=== PATIENT | female | born 1940 | race Two or more races ===

== ENCOUNTER 2018-12-21 12:15 | Emergency (ER) | payer OTHER ==
[~2018-12-21] VITALS: Ht 167.6 cm; Wt 77.1 kg
[2018-12-21] MEDS ORDERED: COZAAR50 MG (12:33)
== END 2018-12-21 20:59 | disposition home or self-care (01) ==
LOC: ER 12:15
DX: K29.70 Gastritis, unspecified, without bleeding (principal); R42 Dizziness and giddiness

== ENCOUNTER 2021-06-12 14:56 | Emergency (ER) | payer OTHER ==
[~2021-06-12] VITALS: Ht 165.1 cm; Wt 72.6 kg
[~2021-06-12 14:56] MED LIST: COZAAR50 MG
[2021-06-12] MEDS ORDERED: SYNTHROID75 MCG PO (15:03)
[2021-06-12] MEDS ORDERED: IBU600 MG PO (15:03)
[2021-06-12] MEDS ORDERED: ADALAT CC30 MG PO (15:04)
[2021-06-12] MEDS ORDERED: LIPITOR40 M1 PO (15:04)
== END 2021-06-12 16:28 | disposition home or self-care (01) ==
LOC: ER 14:56
DX: M54.2 Cervicalgia (principal); I10 Essential (primary) hypertension

== ENCOUNTER → 2022-01-27 | Emergency (ER) | payer OTHER ==
[~2022-01-27] VITALS: Ht 167.6 cm; Wt 73.9 kg
[~2022-01-27] MED LIST changes: +ADALAT CC30 MG PO; +ANTIVERT25 M2 PO; +CYCLOBENZAPRINE10 MG PO; +FOSAMAX70 MG PO; +HYDROCHLOROTHIA25 MG PO; +IBU600 MG PO; +LIPITOR40 M1 PO; +NORFLEX100MG PO; +SYNTHROID75 MCG PO
== END | disposition left against medical advice (07) ==
LOC: ER 11:19
DX: M54.2 Cervicalgia (principal); M62.838 Other muscle spasm; E03.9 Hypothyroidism, unspecified; I10 Essential (primary) hypertension; Z88.0 Allergy status to penicillin; Z88.6 Allergy status to analgesic agent

== ENCOUNTER 2022-01-28 17:53 | Emergency (ER) | payer OTHER ==
[~2022-01-28] VITALS: Ht 167.6 cm; Wt 73.9 kg
[2022-01-28] MEDS ORDERED: CYCLOBENZAPRINE10 MG PO (19:52)
== END 2022-01-28 20:04 | disposition home or self-care (01) ==
LOC: ER 17:53
DX: M62.838 Other muscle spasm (principal); R51.9 Headache, unspecified; I10 Essential (primary) hypertension; E03.9 Hypothyroidism, unspecified; Z88.6 Allergy status to analgesic agent; Z88.0 Allergy status to penicillin

== ENCOUNTER 2023-03-07 17:10 | Emergency (ER) | payer OTHER ==
[~2023-03-07] VITALS: Ht 167.6 cm; Wt 68.5 kg
[2023-03-07 20:01] LABS: HEMATOCRIT 33.5 % (36.0-45.00); HEMOGLOBIN 10.9 g/dL (12.0-15.00); MEAN CELL VOLUME 88.2 fL (80.00-100.00); MEAN CORPUSCULAR HEMOGLOBIN 28.8 pg (27.00-32.0); MEAN CORPUSCULAR HGB CONC 32.7 g/dl (32.0-36.0); PLATELET COUNT 141 K/uL (150-450); RED CELL DISTRIBUTION WIDTH 14.4 % (11.5-14.5)
[2023-03-07 20:36] LABS: ALBUMIN 3.7 gm/dL (3.4-5.0); BILIRUBIN TOTAL 0.4 mg/dL (0.3-1.2); CALCIUM 9.1 mg/dL (8.5-10.1); CREATININE SERUM 0.68 mg/dL (0.55-1.02); GFR 82.84; GLOBULINA 3.5 G/DL (2.4-3.5); TOTAL PROTEIN 7.2 gm/dL (6.4-8.2)
[2023-03-07 20:40] LABS: POTASSIUM 4.13 mEq/L (3.5-5.1)
== END 2023-03-08 01:33 | disposition home or self-care (01) ==
LOC: ER 17:10
PROVIDERS: Emergency Medicine
DX: R07.89 Other chest pain (principal); R00.2 Palpitations; Z88.6 Allergy status to analgesic agent; Z88.0 Allergy status to penicillin

== ENCOUNTER 2023-05-16 15:51 | Emergency (ER) | payer OTHER ==
[~2023-05-16] VITALS: Ht 167.6 cm; Wt 68.0 kg
[2023-05-16] MEDS ORDERED: ANTIVERT25 M2 PO (17:39)
[2023-05-16] MEDS ORDERED: PEPCID AC20 MG (17:39)
== END 2023-05-16 22:54 | disposition home or self-care (01) ==
LOC: ER 15:51
DX: M54.89 Other dorsalgia (principal); R42 Dizziness and giddiness; I10 Essential (primary) hypertension; Z88.6 Allergy status to analgesic agent; Z88.0 Allergy status to penicillin

== ENCOUNTER 2024-01-18 15:14 | Emergency (ER) | payer OTHER ==
[~2024-01-18] VITALS: Ht 167.6 cm; Wt 68.9 kg
[~2024-01-18 15:14] MED LIST changes: +PEPCID AC20 MG
== END 2024-01-18 19:11 | disposition home or self-care (01) ==
LOC: ER 15:16
DX: R53.81 Other malaise (principal); F41.9 Anxiety disorder, unspecified; I10 Essential (primary) hypertension; E03.8 Other specified hypothyroidism; Z88.0 Allergy status to penicillin; Z88.6 Allergy status to analgesic agent

== ENCOUNTER 2024-02-10 17:40 | Emergency (ER) | payer OTHER ==
[~2024-02-10] VITALS: Ht 167.6 cm; Wt 68.9 kg
[2024-02-10] MEDS ORDERED: MELOXICAM15 MG (17:54)
[2024-02-10] MEDS ORDERED: ORPHENADRINE CITRATE 30 MG/ML AMPUL IM ONE (18:45)
[2024-02-10] MEDS ORDERED: NORFLEX100MG PO (19:42)
== END 2024-02-10 19:51 | disposition home or self-care (01) ==
LOC: ER 17:42
DX: R53.81 Other malaise (principal); M62.838 Other muscle spasm; M54.2 Cervicalgia; I10 Essential (primary) hypertension; E03.8 Other specified hypothyroidism; Z88.0 Allergy status to penicillin; Z88.6 Allergy status to analgesic agent

== ENCOUNTER 2024-04-16 15:02 | Emergency (ER) | payer OTHER ==
[~2024-04-16] VITALS: Ht 167.6 cm; Wt 64.4 kg
[~2024-04-16 15:02] MED LIST changes: +MELOXICAM15 MG
[2024-04-16] MEDS ORDERED: levoFLOXacin IN DEXTROSE 5 % 500MG/100ML PIGGYBAG IV SCH (16:33)
[2024-04-16] MEDS ORDERED: LEVALBUTEROL HCL 1.25 MG/3 ML SOLUTION IH ONE (16:45)
[2024-04-16] MEDS ORDERED: FAMOtidine 10 MG/ML (4ML VIAL) IV ONE (16:45)
[2024-04-16] MEDS ORDERED: 0.9 % SODIUM CHLORIDE 1,000 ML IV SCH (16:45)
[2024-04-16] MEDS ORDERED: METHYLPREDNISOLONE SOD SUCC 40 MG VIAL IV ONE (16:45)
[2024-04-16 17:26] LABS: HEMATOCRIT 32.7 % (36.0-45.00); HEMOGLOBIN 11.1 g/dL (12.0-15.00); MEAN CORPUSCULAR HGB CONC 33.7 g/dl (32.0-36.0); PLATELET COUNT 138 K/uL (150-450); RED BLOOD COUNT 3.81 M/uL (4.00-6.00); RED CELL DISTRIBUTION WIDTH 14.9 % (11.5-14.5)
[2024-04-16 17:40] LABS: ERYTHROCYTE SEDIMENTATION RATE 33 mm/hr
[2024-04-16 17:41] LABS: ALBUMIN 3.9 gm/dL (3.4-5.0); ALKALINE PHOSPHATASE 63 U/L (50-136); ALT/SGPT 23 U/L (12-78); ANION GAP 11 (10.0-20.0); AST/SGOT 25 U/L (15-37); BILIRUBIN TOTAL 0.37 mg/dL (0.3-1.2); BLOOD UREA NITROGEN 11 mg/dL (7-18); BUN CREA RATIO 17 (7.0-25.0); CALCIUM 9.1 mg/dL (8.5-10.1); CARBON DIOXIDE 27 mEq/L (21-32); CHLORIDE 105 mmol/L (98-107); CREATININE SERUM 0.66 mg/dL (0.55-1.02); GFR 85.53; GLOBULINA 3.6 G/DL (2.4-3.5); GLUCOSE FASTING 94 mg/dL (65-100); LDH 186 U/L (84-246); OSMOLALITY SERUM 277 MOSM/KG (275-295); POTASSIUM 3.58 mEq/L (3.5-5.1); SODIUM 139 mmol/L (136-145); TOTAL PROTEIN 7.5 gm/dL (6.4-8.2)
[2024-04-16 18:13] LABS: C-REACTIVE PROTEIN < 0.29 MG/DL (0.00-0.29)
[2024-04-16 18:48] LABS: ABG PH 7.464 (7.35-7.45); ABG PO2 67.3 mmHg (80-100); ABG pCO2 36.3 mmHg (35-45); BICARBONATE 25.5 mmol/l (23-25); SaO2 94.4 %; Tco2 26.6 mmol/l; allen test SATISFACTORY; puncture site RADIAL RIGHT
[2024-04-16 18:49] LABS: o2 21 %
[2024-04-16 18:56] LABS: D DIMER 0.51 MG/L
[2024-04-16] MEDS ORDERED: LEVALBUTER0.63 MG/3 IH (22:34)
[2024-04-16] MEDS ORDERED: SINGULAIR10 MG PO (22:34)
[2024-04-16] MEDS ORDERED: CIPRO500 MG PO (22:34)
[2024-04-16] MEDS ORDERED: PEPCID AC20 MG PO (22:34)
== END 2024-04-17 01:25 | disposition home or self-care (01) ==
LOC: ER 15:02
PROVIDERS: General Practice
DX: R06.02 Shortness of breath (principal); N28.1 Cyst of kidney, acquired; I10 Essential (primary) hypertension; Z88.6 Allergy status to analgesic agent; Z88.0 Allergy status to penicillin

== ENCOUNTER 2024-04-20 08:29 | Emergency (ER) | payer OTHER ==
[~2024-04-20] VITALS: Ht 167.6 cm; Wt 64.4 kg
[~2024-04-20 08:29] MED LIST changes: +CIPRO500 MG PO; +LEVALBUTER0.63 MG/3 IH; +PEPCID AC20 MG PO; +SINGULAIR10 MG PO
[2024-04-20 08:37] VITALS: BP 107/66; O2SAT 95
[2024-04-20] MEDS ORDERED: ORPHENADRINE CITRATE 30 MG/ML AMPUL IM STA (09:23)
[2024-04-20 09:57] LABS: HEMATOCRIT 34.2 % (36.0-45.00); HEMOGLOBIN 11.4 g/dL (12.0-15.00); MEAN CELL VOLUME 86.5 fL (80.00-100.00); MEAN CORPUSCULAR HGB CONC 33.5 g/dl (32.0-36.0); RED BLOOD COUNT 3.95 M/uL (4.00-6.00); RED CELL DISTRIBUTION WIDTH 14.7 % (11.5-14.5)
[2024-04-20 10:27] LABS: PLATELET COUNT 107 K/uL (150-450)
[2024-04-20 10:39] LABS: CALCIUM 9.1 mg/dL (8.5-10.1); CREATININE SERUM 1.54 mg/dL (0.55-1.02); GFR 32.17; POTASSIUM 3.54 mEq/L (3.5-5.1)
[2024-04-20 13:55] LABS: URINE APPEARANCE Clear; URINE BILIRRUBIN Negative (NEGATIVE); URINE BLOOD Negative; URINE COLOR Yellow; URINE GLUCOSE Negative (NEGATIVE); URINE KETONE Negative (NEGATIVE); URINE LEUKOCYTE Negative; URINE NITRATE Negative; URINE PROTEIN Negative (NEGATIVE); URINE UROBILINOGEN 0.2 E.U./dl
[2024-04-20 13:59] LABS: URINE BACTERIA 23.2 uL (0.0-1933); URINE EPITHELIAL CELLS 8.5 uL (0.0-38.8); URINE RBC 14.4 uL (0.0-20.8); URINE WBC 3.3 uL (0.0-23.2)
[2024-04-20 14:02] LABS: URINE CAST 0.14 uL (0.0-1.40)
== END 2024-04-20 14:02 | disposition home or self-care (01) ==
LOC: ER 08:29
PROVIDERS: General Practice
DX: S30.0XXA Contusion of lower back and pelvis, initial encounter (principal); W06.XXXA Fall from bed, initial encounter; Y93.89 Activity, other specified; Y92.013 Bedroom of single-family (private) house as the place of occurrence of the external cause; Y99.9 Unspecified external cause status; Z88.6 Allergy status to analgesic agent; Z88.0 Allergy status to penicillin; Z87.09 Personal history of other diseases of the respiratory system; M51.369 Other intervertebral disc degeneration, lumbar region without mention of lumbar back pain or lower extremity pain

== ENCOUNTER 2024-07-09 15:50 | Inpatient (IN) | payer OTHER ==
[~2024-07-09] VITALS: Ht 167.6 cm; Wt 70.3 kg
[2024-07-09] MEDS ORDERED: NITROGLYCERIN0.4 MG SL (16:03)
[2024-07-09] MEDS ORDERED: DIMENHYDRINATE50 MG (16:03)
[2024-07-09] MEDS ORDERED: 0.9 % SODIUM CHLORIDE 1,000 ML IV ONE (16:45)
[2024-07-09] MEDS ORDERED: FAMOtidine 10 MG/ML (4ML VIAL) IV ONE (16:45)
[2024-07-09 17:35] LABS: HEMATOCRIT 32.9 % (36.0-45.00); HEMOGLOBIN 10.9 g/dL (12.0-15.00); MEAN CELL VOLUME 88.4 fL (80.00-100.00); MEAN CORPUSCULAR HEMOGLOBIN 29.4 pg (27.00-32.0); MEAN CORPUSCULAR HGB CONC 33.2 g/dl (32.0-36.0); PLATELET COUNT 133 K/uL (150-450); RED BLOOD COUNT 3.72 M/uL (4.00-6.00); RED CELL DISTRIBUTION WIDTH 14.9 % (11.5-14.5)
[2024-07-09 18:02] LABS: INR 1.1; PARTIAL THROMBOPLASTIN TIME 31.1 SECONDS (22.0-34.0); PROTHROMBIN TIME 11.9 SECONDS (9.0-11.5)
[2024-07-09 18:08] LABS: ALBUMIN 3.7 gm/dL (3.4-5.0); BILIRUBIN TOTAL 0.29 mg/dL (0.3-1.2); CALCIUM 9.1 mg/dL (8.5-10.1); CREATININE SERUM 0.8 mg/dL (0.55-1.02); GFR 68.5; GLOBULINA 3.5 G/DL (2.4-3.5); POTASSIUM 3.83 mEq/L (3.5-5.1); TOTAL PROTEIN 7.2 gm/dL (6.4-8.2)
[2024-07-09 19:03] LABS: URINE APPEARANCE Clear; URINE BILIRRUBIN Negative (NEGATIVE); URINE BLOOD Negative; URINE COLOR Yellow; URINE GLUCOSE Negative (NEGATIVE); URINE KETONE Negative (NEGATIVE); URINE LEUKOCYTE Negative; URINE NITRATE Negative; URINE PROTEIN Negative (NEGATIVE); URINE UROBILINOGEN 0.2 E.U./dl
[2024-07-09 19:07] LABS: URINE RBC 16.2 uL (0.0-20.8); URINE WBC 4.4 uL (0.0-23.2)
[2024-07-09 19:28] LABS: URINE CAST 0.14 uL (0.0-1.40); URINE EPITHELIAL CELLS 1.2 uL (0.0-38.8)
[2024-07-09] MEDS ORDERED: NIFEDIPINE 30 MG TAB.SA.OSM PO SCH (21:00)
[2024-07-10 06:00] VITALS: BP 120/71; O2SAT 94
[2024-07-10] MEDS ORDERED: FAMOTIDINE/PF 20 MG/2 ML VIAL IV SCH (09:00)
[2024-07-10] MEDS ORDERED: LOSARTAN POTASSIUM 50 MG TABLET PO SCH (09:00)
[2024-07-10] MEDS ORDERED: HYDROCHLOROTHIAZIDE 25 MG TABLET PO SCH (09:00)
[2024-07-10 14:53] VITALS: BP 131/77; O2SAT 97
[2024-07-10] MEDS ORDERED: METOPROLOL SUCCINATE 25 MG TAB.SR.24H PO NR (15:00)
[2024-07-10 16:00] VITALS: BP 130/69; O2SAT 95
[2024-07-10] MEDS ORDERED: 0.9 % SODIUM CHLORIDE 1,000 ML IV SCH (20:00)
[2024-07-10] MEDS ORDERED: FAMOtidine 20 MG TABLET PO SCH (21:00)
[2024-07-11 00:32] VITALS: BP 112/58; O2SAT 94
[2024-07-11 08:00] VITALS: BP 156/85; O2SAT 96
[2024-07-11] MEDS ORDERED: METOPROLOL SUCCINATE 25 MG TAB.SR.24H PO SCH (09:00)
[2024-07-11 13:11] LABS: HEMATOCRIT 36.4 % (36.0-45.00); HEMOGLOBIN 11.9 g/dL (12.0-15.00); MEAN CELL VOLUME 88.4 fL (80.00-100.00); MEAN CORPUSCULAR HGB CONC 32.7 g/dl (32.0-36.0); RED BLOOD COUNT 4.12 M/uL (4.00-6.00); RED CELL DISTRIBUTION WIDTH 14.5 % (11.5-14.5)
[2024-07-11 13:14] LABS: PLATELET COUNT 123 K/uL (150-450)
[2024-07-11 14:09] LABS: ALBUMIN 3.5 gm/dL (3.4-5.0); BILIRUBIN TOTAL 0.39 mg/dL (0.3-1.2); CALCIUM 9.1 mg/dL (8.5-10.1); CREATININE SERUM 0.68 mg/dL (0.55-1.02); GFR 82.63; GLOBULINA 3.6 G/DL (2.4-3.5); POTASSIUM 4.4 mEq/L (3.5-5.1); TOTAL PROTEIN 7.1 gm/dL (6.4-8.2)
[2024-07-11 17:27] VITALS: BP 101/63; O2SAT 95
[2024-07-12 00:34] VITALS: BP 128/62; O2SAT 98
[2024-07-12 08:00] VITALS: BP 123/79; O2SAT 99
[2024-07-12 17:03] VITALS: BP 122/71; O2SAT 95
== END 2024-07-12 17:18 | disposition home or self-care (01) | DRG 310 ==
LOC: ER 15:50 → SEC-K 19:50 → SURH 19:50
PROVIDERS: General Practice; Internal Medicine; ADMIT General Practice; ATTEND General Practice
PROC: B24BZZZ Ultrasonography of Heart with Aorta (ICD-10-PCS; principal; 2024-07-10)
PROC: 4A12X4Z Monitoring of Cardiac Electrical Activity, External Approach (ICD-10-PCS; 2024-07-10)
DX: I47.19 Other supraventricular tachycardia (principal); R00.1 Bradycardia, unspecified; R00.2 Palpitations